=== PATIENT | female | born 1955 | race Native Hawaiian/Other Pacific Islander ===

== ENCOUNTER 2016-02-28 08:33 | Outpatient (CLI) | payer OTHER | END 2016-02-28 22:08 | disposition home or self-care (01) | LOC: CT 08:33 | DX: K46.9 Unspecified abdominal hernia without obstruction or gangrene (principal) | CPT/HCPCS: 36415; 82565; 84520; Q9963 ==

== ENCOUNTER 2016-04-20 11:32 | Outpatient (CLI) | payer OTHER | END 2016-04-20 19:08 | disposition home or self-care (01) | LOC: MAMMO 11:32 | DX: Z12.31 Encounter for screening mammogram for malignant neoplasm of breast (principal) | CPT/HCPCS: G0202-TC ==